=== PATIENT | female | born 1960 | race Caucasian/White ===

== ENCOUNTER → 2017-04-05 | Outpatient (CLI) | payer BC ==
--- NOTE | 2017-04-05 10:06 | RADIOLOGY REPORT (SQ) ---
EXAM DESCRIPTION: CT CHEST WITH; CT ABD/PELVIS WITH IV ORAL COMPLETED DATE/TIME: 04/05/2017 9:14 am REASON FOR STUDY: ABD PAIN (R10.9), CHEST PAIN (R07.9), PELVIC AND PERINEAL PAIN (R10.2), JAU R10.9 UNSPECIFIED ABDOMINAL PAIN R07.9 CHEST PAIN, UNSPECIFIED R10.2 PELVIC AND PERINEAL PAIN COMPARISON: None. CONTRAST TYPE AND DOSE: contrast/concentration: Isovue 370.00 mg/ml; Total Contrast Delivered: 74.0 ml; Total Saline Delivered: 66.0 ml RENAL FUNCTION: Creatinine 0.5 TECHNIQUE: CT scan of the chest performed using helical scanning technique with dynamic intravenous contrast injection. Images reviewed with lung, soft tissue and bone windows. Reconstructed coronal a nd sagittal MPR images reviewed. All images stored on PACS. CT scan of the abdomen and pelvis performed with intravenous and with oral contrastusing helical scan el technique with dynamic intravenous contrast injection. Images reviewed with lung, soft tissue a nd bone windows. Reconstructed coronal and sagittal MPR images reviewed. Delayed images for evaluat ion of the urinary system also acquired and evaluated. All images stored on PACS. All CT scanners at this facility use dose modulation, iterative reconstruction, and/or weight based d osing when appropriate to reduce radiation dose to as low as reasonably achievable (ALARA). [facility]: Dose Right [facility]: CareDose [facility]: Dose Right [facility]: Teradose 4D [facility]: [employer] RADIATION DOSE: CT Rad equipment meets quality standard of care and radiation dose reduction techniq ues were employed. CTDIvol: 4.8 - 6.4 mGy. DLP: 860 mGy-cm. . LIMITATIONS: None. FINDINGS: CHEST: LUNGS AND PLEURA: No opacities, nodules, masses. No pneumothorax. No effusions. HILAR AND MEDIASTINAL STRUCTURES: No identified masses or abnormal nodes. HEART AND VASCULAR STRUCTURES: No aneurysm or dissection. No central pulmonary emboli. No pericardi al effusion. HARDWARE: None. THYROID AND OTHER SOFT TISSUES: Thyroid unremarkable. A 3.2 x 2.4 cm right breast mass is present in the upper outer quadrant, best shown on axial images 18-22. Bilateral mammogram with right breast u ltrasound is recommended BONES: No significant finding. OTHER: No other significant finding. ABDOMEN AND PELVIS: LIVER: Normal size liver. No primary hepatic parenchymal masses. However, there is marked intrahepa tic biliary ductal dilatation SPLEEN: 15 cm in length. No focal lesions PANCREAS: Heavily calcified pancreatic head likely from prior pancreatitis. Remainder the pancreas i s atrophic, with massive pancreatic ductal dilatation. GALLBLADDER: Surgically absent ADRENAL GLANDS: No significant masses or asymmetry. RIGHT KIDNEY AND URETER: No solid masses. No significant calcification. No hydronephrosis or hydroure ter. LEFT KIDNEY AND URETER: No solid masses. No significant calcification. No hydronephrosis or hydrouret er. AORTA AND VESSELS: No aneurysm. No dissection. Renal arteries, SMA, celiac without stenosis. RETROPERITONEUM: There are small retroperitoneal lymph nodes as follows: 1.5 x 0.8 cm along the gastric cardia axial image 23 1.4 x 0.9 cm along the gastric cardia axial image 25 1.4 x 0.6 cm in size at the level of the celiac artery axial image 29 BOWEL AND PERITONEAL CAVITY: No masses or inflammatory changes. No free fluid or peritoneal masses. Patient drank oral contrast. APPENDIX: Surgically absent ABDOMINAL WALL: No masses. No hernias. PELVIS: No mass or free fluid. Normal bladder. Post hysterectomy BONES: No significant or acute findings. OTHER: No other significant finding. IMPRESSION: Right upper outer quadrant breast mass for which right breast diagnostic mammogram and u ltrasound, left breast screening mammograms are recommended Heavily calcified atrophic pancreatic head. There is marked biliary ductal and pancreatic ductal dil atation. Findings could be related to chronic pancreatitis. Nonspecific upper abdominal retroperitoneal lymph nodes. NORMAL CT OF THE ABDOMEN AND PELVIS WITH ORAL AND INTRAVENOUS CONTRAST. TECHNICAL DOCUMENTATION: JOB ID: [id number] Quality ID # [id number]: Final reports with documentation of one or more dose reduction techniques (e.g., Au tomated exposure control, adjustment of the mA and/or kV according to patient size, use of iterative reconstruction technique) 2010 [employer]- All Rights Reserved
== END ==
LOC: RAD 07:53
PROVIDERS: ATTEND Internal Medicine
DX: R10.9 Unspecified abdominal pain (principal); R07.9 Chest pain, unspecified; R10.2 Pelvic and perineal pain; R17 Unspecified jaundice
CPT/HCPCS: 71260; 74177

== ENCOUNTER → 2017-04-10 | Outpatient (CLI) | payer BC | LOC: WI 13:03 | PROVIDERS: ATTEND Internal Medicine | DX: N63.11 Unspecified lump in the right breast, upper outer quadrant (principal) | CPT/HCPCS: 76642; 77066 ==

== ENCOUNTER → 2017-06-10 | Outpatient (CLI) | payer BC ==
--- NOTE | 2017-06-10 14:49 | RADIOLOGY REPORT (SQ) ---
EXAM DESCRIPTION: CT ABDOMEN WITH IV ORAL CONT COMPLETED DATE/TIME: 06/10/2017 1:50 pm REASON FOR STUDY: OBSTRUCTION OF BILE DUCT K83.1 OBSTRUCTION OF BILE DUCT COMPARISON: CT abdomen pelvis 04/05/2017 TECHNIQUE: CT scan of the abdomen performed with intravenous and without oral contrast using helical scanning technique with dynamic intravenous contrast injection. Images reviewed with lung, soft tiss ue, and bone windows. Reconstructed coronal and sagittal MPR images reviewed. Delayed images for eval uation of the urinary system also acquired and evaluated. All images stored on PACS. All CT scanners at this facility use dose modulation, iterative reconstruc tion, and/or weight based dosing when appropriate to reduce radiation dose to as low as reasonably ac hievable (ALARA). [facility]: Dose Right [facility]: CareDose [facility]: Dose Right [facility]: Teradose 4D [facility]: [employer] CONTRAST TYPE AND DOSE: contrast/concentration: Isovue 370.00 mg/ml; Total Contrast Delivered: 68.0 ml; Total Saline Delivered: 65.0 ml RENAL FUNCTION: Creatinine 0.4 RADIATION DOSE: CT Rad equipment meets quality standard of care and radiation dose reduction techniq ues were employed. CTDIvol: 5.3 - 6.2 mGy. DLP: 387 mGy-cm. . LIMITATIONS: None. FINDINGS: LOWER CHEST: No significant findings. No nodules or infiltrates. LIVER: Liver is normal size. There is intrahepatic and extrahepatic biliary ductal dilatation relate d to distal common duct stenosis at the pancreatic head. The distal common bile duct is stented with a wall stent. Inside the wall stent, an endoscopically placed biliary stent is present from the duo denum to the right hepatic duct. No liver parenchymal masses are identified. Normal portal vein and hepatic vein enhancement. SPLEEN: Splenomegaly, 15 cm in greatest diameter, similar compared to 04/05/2017. 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 Remainder of the pancreas is atrophic, with a thin rim of pancreas parenchyma surrounding a diffusely dilated p ancreatic duct. These findings are stable compared to 04/05/2017 GALLBLADDER: Surgically absent ADRENAL GLANDS: Unremarkable RIGHT KIDNEY AND URETER: No solid masses. No significant calcifications. No hydronephrosis or hyd roureter. LEFT KIDNEY AND URETER: No solid masses. No significant calcifications. No hydronephrosis or hydr oureter. AORTA AND VESSELS: No aneurysm. No dissection. Renal arteries, SMA, celiac without stenosis. RETROPERITONEUM: No retroperitoneal adenopathy, hemorrhage or masses. BOWEL AND PERITONEAL CAVITY: No masses or inflammatory changes. No free fluid or peritoneal masses. APPENDIX: Surgically absent ABDOMINAL WALL: No masses. No hernias. BONES: No significant or acute findings. OTHER: No other significant finding. IMPRESSION: There is air within the intrahepatic bile ducts and common hepatic/ common bile duct ind icating patency of the endoscopically placed biliary stent through the distal common duct wall stent. Stable pancreatic head calcifications and pancreatic neck/body atrophy Stable splenomegaly Post cholecystectomy and appendectomy TECHNICAL DOCUMENTATION: JOB ID: [id number] Quality ID # [id number]: Final reports with documentation of one or more dose reduction techniques (e.g., Au tomated exposure control, adjustment of the mA and/or kV according to patient size, use of iterative reconstruction technique) 2010 [employer]- All Rights Reserved Reading location - IP/workstation name: [email or web address]
== END ==
LOC: RAD 13:34
PROVIDERS: ATTEND Internal Medicine
DX: K83.1 Obstruction of bile duct (principal); K86.89 Other specified diseases of pancreas
CPT/HCPCS: 74160; 82565

== ENCOUNTER → 2017-12-13 | Outpatient (CLI) | payer BC ==
--- NOTE | 2017-12-13 13:56 | RADIOLOGY REPORT (SQ) ---
EXAM DESCRIPTION: SHOULDER RIGHT 2 OR MORE VIEWS COMPLETED DATE/TIME: 12/13/2017 1:13 pm REASON FOR STUDY: PAIN IN RT SHOULDER M25.511 PAIN IN RIGHT SHOULDER COMPARISON: None. NUMBER OF VIEWS: Three views. TECHNIQUE: Internal rotation, external rotation, and Y view images acquired of the right shoulder. LIMITATIONS: None. FINDINGS: MINERALIZATION: Normal. BONES: No acute fracture or dislocation. No worrisome bone lesions. Prominent osteophytes on the acro mioclavicular joint. GLENOHUMERAL JOINT: No significant findings. ACROMIOCLAVICULAR JOINT: Prominent osteophytes. SOFT TISSUES: No calcifications. VISUALIZED RIBS, SPINE, AND LUNG: No other significant finding. OTHER: No other significant finding. IMPRESSION: DEGENERATIVE CHANGES IN THE ACROMIOCLAVICULAR JOINT WITH OSTEOPHYTES. TECHNICAL DOCUMENTATION: JOB ID: [id number] 6451 [employer]- All Rights Reserved Reading location - IP/workstation name: [email or web address]
== END ==
LOC: OD 12:37
PROVIDERS: ATTEND Physician Assistant
DX: M25.511 Pain in right shoulder (principal)